=== PATIENT | female | born 1990 | race Caucasian/White ===

== ENCOUNTER 2023-01-09 08:00 | Outpatient (RCR) | payer OTHER, SELFPAY ==
--- NOTE | 2023-01-09 11:05 | BH.SGPN.GN ---
Behaviors/Verbalizations/Mental Status: []Pt alert and oriented, casually dressed and groomed. Eye contact good. Motor activity appropriate. Speech within normal limits. Affect congruent, mood anxious. Thoughts linear, logical, no signs of hallucinations or delusions. Client Response/Progress/Benefit: [] Pt was an active participant in group discussions and activity. Attentive during psychoeducation. Along with peers was able to reflect on what conflict resolution skills can be useful outside of IOP. Pt chose to continue to work on the conflict resolution skills of asking themselves what they feel before starting and being more descriptive for the rest of the week. Benefited from practicing and learning conflict resolution skills. Will continue in IOP to prevent decompensation, improve daily functioning, and increase distress tolerance skills. ? Narrative Note: []
--- NOTE | 2023-01-09 12:25 | BH.MDN ---
Multi-Disciplinary Note Note 45-min Individual: Time Started:: 09:20 Date: 01/09/23 Purpose of session/treatment goals addressed:: Purpose of session was to build rapport, gather background information, and identify goals for IOP. Eye Contact:: Fair Motor Activity:: Restless Appearance:: Casual Speech:: Other (slow to speak) Mood:: Anxious Affect:: Constricted Thoughts:: Logical, Other (slow to process/delayed) and No evidence of hallucinations/delusions noted Staff Interventions:: thought challenging, psychoeducation on: (cognitive triangle, breathing techniques, wellness wheel), CBT techniques, rapport building, strengths perspective, treatment planning and taught coping skills Client Response:: Pt stated daily life has been challenging for the past several months due to anxiety. Pt stated difficulty managing stress has contributed to why they are on a leave of absence from work. Pt reported they become quickly overwhelmed and shuts down. Pt reported uncontrollable worry, physical anxiety symptoms, restlessness, muscle tension and erratic sleep is impacting ability to function at work and home. Pt reported areas they struggle in include managing work-life balance, being more concerned with other people's needs over own needs, and difficulty completing personal hygiene and eating consistently. Client reported in past counseling they have worked on developing organizational strategies, however stated they struggle with consistently using the strategies. Client stated one strategy that used to work was categorizing tasks into important/urgent vs unimportant/not urgent. Client identified learning about breathing techniques has been useful, however has been struggling with consistent use of this skill. Pt reported they would like to learn additional skills/strategies to help mange stress better. Pt connected with psychoeducation about cognitive triangle. client could connect how thoughts/behaviors/emotions are interconnected and how own thoughts can keep them stuck in anxious loop. Pt reported would also like to work on managing guilt thoughts, which they shared stems from childhood experiences. Pt stated feelings of guilt contribute to negative thoughts about self. Risks/Concerns:: Denies suicidal ideation, plan or intention to date. feels able to keep self safe. identifies protective factors. Progress Toward Goals/Plan:: No progress observed, first day in IOP. Pt is currently on a leave of absence from work due to mental health symptoms interfering with ability to complete job responsibilities. Pt's anxious symptoms have been impacting ability to concentrate and complete tasks at work. Pt states they feel like they can't complete life tasks like chores, cooking, and personal hygiene due to mental health. Pt is to continue IOP to improve daily functioning, improve healthy coping, and prevent decompensation. Time Stopped:: 10:00
--- NOTE | 2023-01-10 09:00 | BH.SGPN.GN ---
Behaviors/Verbalizations/Mental Status: [Patient was alert and oriented, casually dressed and groomed. Eye contact was good, motor activity normal, speech within normal limits. Affect congruent, mood aggravated. Thoughts linear, logical, no signs of hallucinations or delusions. Reviewed Patients symptom tracker, the patient reports having low/moderate in depressed mood, moderate in agitation/irritability/anger, and moderate/severe in anxiety/panic attacks. Patient denied any symptoms of self-harm urges/behaviors, thoughts of suicide, and risk of suicide.] Client Response/Progress/Benefit: [Patient was engaged and open to the discussion. Patient reported their mood to be ?aggravated? at themselves. The patient did well when challenged to recognize the importance of self-compassion in managing this emotion. Patients? stressor was that they accidentally turned off their phone alarm instead of snoozing it this morning which made them wake up 40 minutes late. This caused the patient to forget their breakfast, their comfort items, and a form they needed to bring. Patient shared their first win as being able to advocate for themselves yesterday during group. The patient stated they are overly sensitive to sounds and discovered the lights in the lobby were making a noise that was uncomfortable to them. The patient expressed this and it was handled. The patient was not able to identify a second win. Patient was quiet but used active listening skills when others presented and benefited from the challenge and discussion. Patient will continue with IOP treatment to promote healthy coping skills, improve negative thinking, and continue to improve functioning.] Narrative Note: []
--- NOTE | 2023-01-10 10:40 | BH.NA_ITS ---
Physical Data Vital Signs Pulse Rate: 90 Blood Pressure: 109/60 Height/Weight Height: 1.63 m Weight:: 54.431 kg Weight in Pounds: 120.0 lbs Current Medication Compliance Medication Compliance Do you take your medication as prescribed?: Yes Nutritional History Appetite Nutritional Instructions: Describe your appetite:: Fair Additional nutritional information:: Client denies change in appetite. Client does state she has some body image issues. Functional Assessment Sleep Pattern Describe any problems with sleeping: Client states when she does not take Trazodone, she only sleeps 3-4 hours. Client states with her Trazodone she does sleep 9 hours per night. Sensory/Communication Assess Communication Problems Do you have difficulty understanding what people are saying?: No Learning Assessment Education What is your level of education?: Doctorate Degree (neuroscience) Medical Problems/History Respiratory Conditions Respiratory: Asthma (uses inhaler with exercise) Neurological Conditions Neurological: Other (See comments) (Client states she believes she has had 2 concussions- 1 in 2012 and 1 in July of this year. Client states she never had scans done after, but states she did have cognitive function altered for about a month with the first, and a few days with the concussion this year) Gastrointestinal Conditions Gastrointestinal: Other (See comments) (IBS) Pain Assessment Do you have acute or chronic pain?: Yes (client states some joint pain from sports injuries over the years) Additional History Additional comments:: ADHD diagnosis in April 2022 Surgical History Surgical History Have you had any surgeries? If so, list type and date:: Yes (wisdom teeth, right knee, cyst removal) Substance Abuse Substance Abuse Please describe substance abuse in the last 30 days:: Client states she drinks alcohol about 5 times per week, and states it can be up to 4-5 drinks in a 3 hour time. Client states she does have period of intentional sobriety, but states this has been her normal for the past few years. Client denies tobacco use. Client states she uses 0.25-0.5mg of THC edibles every 3 days to help with anxiety. Client states she uses LSD about 2-3 times per year. Client states she does drink coffee, and occasionally has energy drinks, but never drinks caffeine past 2pm. Mental Status Summary Mental Status Significant Findings/Observations on Appearance and Mood:: Client is alert and oriented x 4. Client is casually groomed with good hygiene. Client is c ooperative with assessment. Client makes poor eye contact. Client's voice has normal rate and volume. Client appears anxious during interview, and has many pauses while thinking of a response. Client has appropriate affect. Client states she is a poor historian of her own timeline and pauses to think often with responses. Client denies delusions/hallucinations. Client denies SI. Suicide Assessment Suicidal Ideation Are you currently or have you been suicidal in the past?: Yes (past- has not had SI since 2013) Suicidal Intentional Rating Scale (SIRS): Suicidal thoughts (past) Physician Notification Past Psychiatric History MH Treatment Hx Past Psychiatric Medications:: Client states she has been on one SNRI and two SSRI's in the past along with current medications Age of first mental health symptoms: Client states she has had anxiety since she was a kid, but states she has only been on medication for anxiety since she was 23. Client states she was diagnosed with ADHD this year and started on Adderall. Describe (age, circumstance, etc) any past hospitalizations: None. Current providers for mental health treatment (counselor, psychiatrist, field case manager, etc.): Renato Ho is her counselor at [facility], and Corona Graves DNP is psychiatry provider at [facility] Risk Assessment Age Age: Less than 60 Mental Status Mental Status: Willing & able to ask for assistance when needed Physical Status Physical Status: No problems Impairments Impairments: None Elimination Elimination: Continent AND independent Gait or Balance Gait or Balance: Walks independently Hx of Falls History of falls in the past 6 months: No known history Medications/Substances Psychotropics:: Antidepressants and Stimulants Medications/substances used within the past 24 hours or ordered to administer: 3 or more of the medications/substances listed above Total Score Total Points:: 2 RN Summary of Impressions Impressions Recommendations Impressions: Psychiatric Issues: 1. Generalized anxiety disorder 2. PTSD 3. Major depressive disorder, recurrent, moderate 4. ADHD (diagnosed 1 year ago) 5. Mild autism spectrum disorder (diagnosed by patient's brother who is a psychiatric mental health nurse) Level of Care How do the client's current symptoms and functional deficits support need for this level of care?: Client presents to [facility] with anxiety that has worsened since July/August of this year. Client states she had a concussion in July of this year, and states her mental health symptoms worsened after that. 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 Client states she had been better with her ability to do chores, cooking, etc after starting Adderall after he ADHD diagnosis, but client states she is back to having difficulty doing daily tasks. Client states she has had less panic attacks/severe anxiety periods since taking medical leave from work, but still reports high levels of anxiety. Client denies SI. IOP will promote gains and prevent further decompensation while providing social support and skills training.
--- NOTE | 2023-01-10 11:05 | BH.SGPN.GN ---
Behaviors/Verbalizations/Mental Status: []Pt alert and oriented, casually dressed and groomed. Eye contact good. Motor activity appropriate. Speech within normal limits. Affect constricted, mood anxious. Thoughts linear, logical, no signs of hallucinations or delusions. Client Response/Progress/Benefit: [] Pt was an active participant in group discussions and experiential activity. Attentive during psychoeducation. Pt participated during interactive discussion on strategies to overcome several obstacles to mental wellness including perfectionism, using unhealthy coping skills, and inflexible thinking patterns. Pt choose the barrier of unhealthy coping skills? to work on this week and identified strategies to incorporate including asking self what does saying yes say no to? Benefited from increased awareness of obstacles to mental wellness and strategies to help overcome those obstacles. Will continue in IOP tx to prevent decompensation, gain healthy coping skills, and improve daily functioning. ? Narrative Note: []
[2023-01-10 12:01] VITALS: BP 109/60; PULSE 90
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
--- NOTE | 2023-01-10 12:24 | BH.DR.ITP ---
Initial Treatment Plan Patient Information Visit Information: ADMISSION DATE: EXPECTED LOS: 4-6 weeks Problems/Symptoms Problem #1:: Anxiety Symptom:: Worry, rumination, panic attack, nightmares, reexperiencing, flashbacks, avoidance Problem #2:: Depression Symptom:: Sadness, guilt, decreased concentration, low energy, mild anhedonia, hopelessness
--- NOTE | 2023-01-10 14:41 | BH.MDN_ITS ---
Multi-Disciplinary Note Note 60-min Individual: Time Started:: 12:10 Date: 01/10/23 Purpose of session/treatment goals addressed:: Purpose of session was to address goals 1 and 2 from [facility]. Eye Contact:: Fair Motor Activity:: Restless Appearance:: Casual (Wearing the same sweatshirt as yesterday) Speech:: Tangential and Other (Slowed) Mood:: Anxious Affect:: Constricted Thoughts:: Logical, Other (Slow to process at times) and No evidence of hallucinations/delusions noted Staff Interventions:: psychoeducation on: (Appropriate versus inappropriate guilt. Psychoeducation on anxiety), CBT techniques, mindfulness skills, rapport building, strengths perspective, goal setting and taught coping skills Client Response:: Client shared their morning started off a bit rushed due to their phone alarm accidentally being shut off. Client stated time pressure can be a trigger to increase stress and anxiety. Client reported initially was very tense when he woke up this morning realizing that ready to be late to IOP. Client stated they use belly breathing and challenging their thoughts in the moment which seemed to help manage stress level. Client shared being late to appointments and hang out with friends has been a problem for them in the past. Client reported they have implemented some strategies like laying out what they need the night before and given themselves a 15-minute leeway to give extra time to get summer. Client stated most of the strategies have been helpful and this is not a significant problem. Client reported they really do struggle with recognizing how much time things will take so they do not get himself enough time to get ready. In discussion of guilt client connected to information about appropriate versus inappropriate guilt. Client able to walk through an example of what appropriate get looks like and shared an example of what inappropriate guilt looks like. Client shared about situation with secondary partner in which they are feeling a little stressed about their secondary partner being unemp loyed and depressed all the time. Client reported that her secondary partner has been unemployed for over 8 months and is severely depressed. Client stated they are starting to notice that their partners mood is impacting client's own mood. Therapist and client walked through different problem-solving options of what they could do to make sure the partners mood is not impacting client. Client stated they would not be able to follow through with option 1 of limiting contact with partner because this results in feeling guilty. Client struggled with walking through whether this was appropriate or inappropriate guilt. Client recognizes with assistance from therapist that is not appropriate to do it because they are not do anything wrong to set boundaries but emotionally it feels well. Client communicated that this stressor is not something they really want to focus on because it has not a primary issue. Client reported they rather focus on anxiety and stress management. Client receptive to completing homework of reading and completing anxiety symptoms handouts in which they are to identify physical symptoms of anxiety, anxious thought patterns, and safety behaviors. Client connected to psychoeducation about safety behaviors. Risks/Concerns:: Denies suicidal ideation, plan, and intention. Future oriented. Progress Toward Goals/Plan:: Progress noted with client reporting ability to manage stressful situations this morning. Client notes continued decrease in anxiety since not being at work currently. Client states still struggles with motivation to complete tasks around the house and can easily get overwhelmed. Client stated sometimes feels like they only have the mental capacity to get home and sit on the couch. Client continues to struggle with anxious thoughts, restlessness, uncontrollable worry, and muscle tension. Client's anxiety continues to impact ability to complete certain task at home. Some slight reporting decreased anxiety since not being at work but will be returning to work soon. Client to continue IOP to increase healthy coping, improve daily functioning, and prevent decompensation. Time Stopped:: 13:15
--- NOTE | 2023-01-11 09:00 | BH.SGPN.GN ---
Behaviors/Verbalizations/Mental Status: [] Eye contact is good. Motor activity is appropriate. Appearance is casual. Speech is Appropriate. Mood is anxious. Affect is congruent. Thoughts are linear and logical. No evidence of psychosis. Reviewed daily check in sheet and no reports of suicidal ideations or intent. Client Response/Progress/Benefit: [] Pt participated at times during the group discussion. Attentive. Daily symptom tracker notes 4/5 for anxiety and 3/5 for irritability. She reports significant stress, negative thoughts, and overwhelming emotions last evening at a social event. Shared that triggers to her distress. Reported being uncomfortable, upset, and overstimulated. Talked at length regarding the events, her struggles, and eventually how she was able to advocate for herself. While the situation was stressful progress noted as she as able to effectively communication which mediated her struggles. Shared that she is also anxious about sharing in the group. Group provided support, encouragment, and feedback which was beneficial. Will continue in IOP to prevent decompensation, increase healthy coping, and improve functioning to return to work. Narrative Note: []
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
--- NOTE | 2023-01-11 11:05 | BH.SGPN.GN ---
Behaviors/Verbalizations/Mental Status: []Pt alert and oriented, neatly dressed and groomed. Eye contact good. Motor activity appropriate. Speech within normal limits. Affect congruent, mood euthymic. Thoughts linear, logical, no signs of hallucinations or delusions. Client Response/Progress/Benefit: [] Pt responded well to session AEB Pt listening attentively to others and providing input during group discussion on the pay offs and costs of the different communication styles. Pt able to connect how current communication style impacts mental health. Pt engaged in activity and did well to assertively communicate ideas. Connected with peers comments about importance of using assertive communication. Pt reported she wants to work on being more aware of their passive body language. Pt seemed to benefit from increasing awareness of healthy strategies to improve communication. Will continue IOP tx to prevent decompensation, increase distress tolerance skills, and combat distortions. Narrative Note: []
--- NOTE | 2023-01-11 14:52 | BH.MDN ---
Multi-Disciplinary Note Note 45-min Individual: Time Started:: 12:14 Date: 01/11/23 Purpose of session/treatment goals addressed:: Purpose session was to address goals 1 and 2 from [facility]. Eye Contact:: Fair Motor Activity:: Restless Appearance:: Casual (Wearing the same sweatshirt as the last 2 days) Speech:: Tangential Mood:: Anxious Affect:: Constricted Thoughts:: Logical, Other (Slow to process) and No evidence of hallucinations/delusions noted Staff Interventions:: CBT techniques, rapport building, strengths perspective, goal setting and taught coping skills Client Response:: Client shared homework from earlier session of the wellness wheel. Client reported areas in which they like to work on progress of the wellness is regular exercise, eating better, work life balance, budgeting, spending time in nature, and finding a creative outlet. Client shared they could take their dog on a hike instead of just on the block to increase experience in nature. Client and therapist reviewed homework from what yesterday's session which client identified physical anxious symptoms, anxious thought patterns, and safety behaviors. Client able to identify how their safety behaviors has held him back from opportunities in life and difficulty with enjoying self. Client stated they tend to struggle with going to places without having somebody they know with them. Client stated their safety behaviors impact ability to be efficient while at work and leads to over analyzing situations. Client stated something that they could work on while they are off work is decreasing reassurance seeking from others. Client reported they will often ask their partners if something they do is weird compared to others. Client stated they ask for reassurance at least once a day every day. Client reported her goal for the weekend is to focus on decreasing reassurance seeking, exercise at least once, and cook a meal. Risks/Concerns:: Denies suicide ideation, plan, and intention. Progress Toward Goals/Plan:: Progress noted with client reporting use of healthy coping skills to manage stress. Client expressed anxiety about returning to work in 2 weeks. Client stated that they will be able to continue IOP well working which makes them feel a little better to have some support. Client continues to report anxious symptoms like restlessness, uncontrollable worry, difficulty concentrating, and feeling on edge. Client reports some improvement with daily functioning but does attribute this to being off work because her stress level is decreased. Client concerned about returning to work and their ability to function at home will decline. Client to continue IOP to improve daily functioning, increase consistent use of healthy stress management strategies, and prevent decompensation. Time Stopped:: 13:05
--- NOTE | 2023-01-12 09:00 | BH.SGPN.GN ---
Behaviors/Verbalizations/Mental Status: [] Eye contact is fair. Motor activity is restless. Appearance is casual. Speech is Appropriate. Mood is anxious. Affect is constricted. Thoughts are linear and logical. No evidence of psychosis. Reviewed daily check in sheet and no reports of suicidal ideations or intent. Client Response/Progress/Benefit: [] Pt participated at times during the group discussion. Attentive. Client stated they had a rough night in which they are struggling with a lot of negative thought patterns and racing thoughts. Client noted a mental positive that has come out of their stressor was being able to sit down and look at the cognitive distortion worksheet which helped them challenge the negative thoughts. Client reported additional mental positive was asking their partner for help which they noted was very helpful in the moment. Progress noted. Benefited from group support, encouragement, and feedback. Will continue in IOP to prevent decompensation, continue working on challenging negative thoughts, improve confidence, and improve daily functioning.
--- NOTE | 2023-01-12 09:00 | BH.SGPN.GN ---
Behaviors/Verbalizations/Mental Status: [Patient was alert and oriented, casually dressed and groomed. Eye contact was poor, motor activity normal, slowed speech. Affect congruent, mood depressed. Thoughts linear, logical, no signs of hallucinations or delusions. Reviewed Patients symptom tracker and rated lower than normal, therapist will check in with patient to ensure safety.] Client Response/Progress/Benefit: [ Patient was engaged and open to the discussion. Patient reports their mood to be ?concerned?. The patient seemed to struggle to speak and find words to say. The first win was that they had a ?horrible? night and was crying but saw their binder from the group. They said they started reading about cognitive distortions which was ?kind of helpful?. Patient stated that it also taught them things they were doing which was hard for them to accept and doesn?t want to believe them although its factual. The second win was that they were able to ask their partner to support them which was helpful. The stressor was the ?horrible? night they had and that they were still coping with the emotions. The patient stated they challenged their emotions but talking themselves into coming to group because ?being here and talking about it should help?. Patient quiet and respectful in group and actively listened to other group members talk about their mental wins and stressors. Patient benefited from the discussion by listening to feedback. Patient will continue with IOP treatment to help develop healthy skills, promote mood stability, and improve distress tolerance.] Narrative Note: []
--- NOTE | 2023-01-12 10:15 | BH.SGPN.GN ---
Behaviors/Verbalizations/Mental Status: [] Eye contact is good. Motor activity is appropriate. Appearance is casual. Speech is Appropriate. Mood is depressed. Affect is congruent. Thoughts are linear and logical. No evidence of psychosis. Client Response/Progress/Benefit: [] Pt did not participate in group discussions. Attentive during psychoeducation. Attentive during group discussion on types of support, benefits of support, and obstacles to utilizing support. Pt reports their primary supports are certain friends, medications, and music. 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 Participated in experiential activity and was able to connect this activity to group topic. Benefited from increased awareness of the benefits and importance of maintaining a balanced support system. Will continue in IOP to prevent decompensation, stabilize mood, and increase healthy coping skills. Narrative Note: []
--- NOTE | 2023-01-12 13:50 | BH.MDN ---
Multi-Disciplinary Note Note 60-min Individual: Time Started:: 11:45 Date: 01/12/23 Purpose of session/treatment goals addressed:: Pt requested to speak with a program therapist today. Tearful during first group this AM. Utilized the session to process and develop strategies for emotional boundary setting this weekend at pt's request. Eye Contact:: Fair Motor Activity:: Appropriate Appearance:: Casual Speech:: Appropriate Mood:: Anxious and Depressed Affect:: Congruent Thoughts:: Linear, Logical and No evidence of hallucinations/delusions noted Staff Interventions:: thought challenging and psychoeducation on: (emotional boundary setting, acceptance) Client Response:: Pt briefly discussed stressors which occurred last evening and into this AM which are related to their BFs mental health. According to pt their BF is not suicidal however has experienced worsening depression in the past several months. Last evening their BF received difficult news and she was concerned that he would decompensate further. Shared that they believe its their responsibility to care for others and resolve or significantly decrease his distress. Logically I know this isn't my responsibility Insight that she is shoulding on herself. Ruminating and worrying which is taking up significant space in her head and impacting her mental health. This AM she was worried and had not received a good morning text from him and began to ruminate which led to being tearful during 1st group. BF texted around 11am. She reports that she does not feel confident in setting boundaries on the conversations with him for fear that it will further impact his mental health. We discussed strategies to set realistic expectations for her role in his mental health and for practicing acceptance. She was able to verbalize affirmations, thought challenges, and other internal skills that she could use before, during, and after meeting with him erica. I don't think he will bring up his struggles however she wants to be prepared. Pointed out that simply being supportive and providing distractions can significantly impact another's well-being. Risks/Concerns:: Denied any suicidal ideations, plan or intent. Progress Toward Goals/Plan:: Tearful throughout the assessment, however responded well to session. Insight that their core beliefs regarding being perfect and having high expectations of herself significantly impact their mental health. Setting high expectations on her role in her BF's mental health made her feel ineffective and as if she was failing or not helping him when in fact being supportive and providing a distraction has been helpful. Will continue in IOP to prevent decompensation, stabilize mood, and improve functioning. Time Stopped:: 12:45
== END 2023-01-13 23:59 ==
LOC: BHIOP 08:00
PROVIDERS: Referring Provider Psychiatry & Neurology Psychiatry; Visit Provider Psychiatry & Neurology Psychiatry
DX: F33.1 Major depressive disorder, recurrent, moderate (principal); F41.1 Generalized anxiety disorder; F43.10 Post-traumatic stress disorder, unspecified; F90.9 Attention-deficit hyperactivity disorder, unspecified type; F84.0 Autistic disorder
CPT/HCPCS: S9480; 90834; 90837; 90853

== ENCOUNTER 2023-01-15 09:20 | Outpatient (RCR) | payer OTHER, SELFPAY ==
[2023-01-14 00:49] VITALS: BP 109/60; PULSE 90
--- NOTE | 2023-01-15 10:52 | BH.MTP ---
Master Treatment Plan Patient Information Program Physician:: Dr. Christianson Primary Therapist:: Jacey Stewart, [facility] Psychiatric Diagnoses Psychiatric Diagnoses:: 1. Generalized anxiety disorder F41.1 2. PTSD 3. Major depressive disorder, recurrent, moderate 4. ADHD (diagnosed 1 year ago) 5. Mild autism spectrum disorder (diagnosed by patient's brother who is a psychiatric social worker supervisor) Diagnosis Code(s):: F41.1 Estimated LOS Estimated LOS (in weeks):: 6 Problem/Goal #1 Problem/Goal #1 Stated Goal:: Stabilize anxiety level while increasing ability to function and decreasing ruminative thoughts on a daily basis through Intensive Outpatient Program. Description of Barriers: Potential barriers include: anxious thoughts, negative self-talk, rigidity, low motivation, and anhedonia. Functional Impact: The patient is a 32-year-old biological female who identifies as a nonbinary person who was referred to the [facility] behavioral health IOP for worsening anxiety and sadness. . 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 Their mood has also been somewhat depressed and at one point they was having trouble with personal hygiene, doing basic tasks and errands and chores. They have been on a leave of absence from work for the past 2 weeks and their anxiety has improved since then. Patient endorses sadness, worthlessness, hopelessness, guilt and mild anhedonia. Goal Relevant Strengths/Supports: Client is intelligent, expresses motivation to get better, and reports having support from fianc?. Objectives Objective #1: Stated Objective: Client will learn and implement 2-3 calming skills to reduce overall anxiety and manage anxiety symptoms. Interventions: Therapist and group sessions will help client identify physiological warning signs of anxiety, increase awareness of thoughts that increase anxiety, and identify behaviors that reinforce anxious symptoms. Group and individual counseling will teach client calming skills to help manage anxious symptoms. Discharge Criteria: Client will have achieved this goal when can verbalize at least 2 calming skills and reports skills successfully help reduce anxious symptoms. Target Date: 02/20/23 Review Date: 02/06/23 Objective #2: Stated Objective: Client will identify 2-3 anxiety triggers and 2 coping skills to use when feeling anxious. Interventions: Therapist will assist client in exploring what triggers anxiety and teach client coping strategies to effectively manage anxiety symptoms. Discharge Criteria: Client will have met this goal when can identify at least 2 triggers to anxiety and verbalize two healthy ways to cope with feelings of anxiety. Target Date: 02/20/23 Review Date: 02/06/23 Problem/Goal #2 Problem/Goal #2 Stated Goal:: Client will reduce depression, feelings of hopelessness, and worthlessness due to Major Depressive Disorder through Intensive Outpatient Program. Description of Barriers: Potential barriers include: anxious thoughts, negative self-talk, rigidity, low motivation, and anhedonia. Functional Impact: The patient is a 32-year-old biological female who identifies as a nonbinary person who was referred to the [facility] behavioral health IOP for worsening anxiety and sadness. . 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 Their mood has also been somewhat depressed and at one point they was having trouble with personal hygiene, doing basic tasks and errands and chores. They have been on a leave of absence from work for the past 2 weeks and their anxiety has improved since then. Patient endorses sadness, worthlessness, hopelessness, guilt and mild anhedonia. Goal Relevant Strengths/Supports: Client is intelligent, expresses motivation to get better, and reports having support from fianc?. Objectives Objective #1: Stated Objective: Client will learn and utilize 2-3 healthy coping strategies to manage depressive symptoms. Interventions: Therapist will utilize CBT techniques to assist client with understanding the connection between thoughts, feelings and behaviors. Education will be provided on behavioral activation. Therapist will assist client in learning internal coping strategies to manage depressive symptoms, along with helping client identify triggers. Discharge Criteria: Client will have achieved this goal when can verbalize and has practiced at least 2 healthy coping strategies that successfully manage depressive symptoms. Target Date: 02/20/23 Review Date: 02/06/23 Objective #2: Stated Objective: Client will identify and replace 2-3 negative thinking patterns that reinforce feelings of hopelessness and worthlessness. Interventions: Through groups and individual therapy, pt will be provided with education on cognitive distortions, mistaken beliefs, and identifying and combating negative self-talk. Therapist will help pt explore connection between thoughts, feelings, and actions. Discharge Criteria: Pt will be able to identify 2-3 negative thinking patterns and be able to effectively stop, challenge, or cope with those negative thoughts. Target Date: 02/20/23 Review Date: 02/06/23
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
--- NOTE | 2023-01-16 09:05 | BH.SGPN.GN ---
Behaviors/Verbalizations/Mental Status: [] Eye contact is good. Motor activity is appropriate. Appearance is casual. Speech is Appropriate. Mood is anxious. Affect is congruent. Thoughts are linear and logical. No evidence of psychosis. Reviewed daily check in sheet and no reports of suicidal ideations or intent. Client Response/Progress/Benefit: [] Pt participated at times during the group discussion. Attentive. Daily symptom tracker notes 3/5 for anxiety and depression and a 4/5 for irritability. Mental health win was that she had a difficult conversation over the weekend which was emotionally overwhelming and challenging however led to increased awareness and insight. Utilized effective communication strategy learned in IOP and quickly learned that the her concerns, wants, and emotions were not being considered which resulted in understanding the need for a boundary. Progress noted AEB effective communication and boundary setting skills. Benefited from group support, encouragement, and feedback. Will continue in IOP level of care to prevent decompensation, increase healthy coping, and improve functioning to return to work. Narrative Note: []
--- NOTE | 2023-01-16 10:15 | BH.SGPN.GN ---
Behaviors/Verbalizations/Mental Status: [] Eye contact is fair. Motor activity is appropriate. Appearance is casual. Speech is Appropriate. Mood is anxious. Affect is flat. Thoughts are linear and logical. No evidence of psychosis or hallucinations. Client Response/Progress/Benefit: [] Pt was a mostly passive participant in group discussion and activity. Attentive during psychoeducation. Along with peers was able to identify barriers to taking action on her mental health which included: fear of failure, the unknown, change, one's environment, past negative experiences, being passive, and fear of vulnerability. Identified several symptoms and stressors that client feels are impacting progress. Benefited from increased self-awareness of obstacles. Will continue in IOP to consistently apply healthy coping skills, improve outlook on life, and prevent decompensation.
--- NOTE | 2023-01-16 14:25 | BH.MDN ---
Multi-Disciplinary Note Note 60-min Individual: Time Started:: 11:40 Date: 01/16/23 Purpose of session/treatment goals addressed:: Purpose of session was to address goals 1 and 2 from MTP. Eye Contact:: Fair Motor Activity:: Restless Appearance:: Casual Speech:: Tangential and Other (slowed) Mood:: Anxious and Dysthymic Affect:: Constricted Thoughts:: Logical and No evidence of hallucinations/delusions noted Staff Interventions:: thought challenging, psychoeducation on: (boundary types and styles; DBT Ruvalcaba Mind), CBT techniques, strengths perspective and taught coping skills Client Response:: Client's states last week they were struggling because they were worried about their boyfriend from their secondary relationship. Client reports they are starting to notice the negative impact their boyfriend is having on their own mental health. Client states getting more worried about their boyfriend now that he is allowing one of his exes back in his life, which client reports from their perspective is a toxic person. Client reports they used the JOI worksheet to write out what they wanted to say to their boyfriend. Client states they only got to the second step of expressing feelings and couldn't complete the steps because their boyfriend kept interrupting. Client reports desire to learn about boundaries because recognizes it is time to set a firm boundary with their boyfriend due to is starting to impact their own mental health. Responded well to psychoeducation about utilizing ruvalcaba mind when making decisions. Client connect the importance of taking into account both rational and emotional mind versus making decision in just rational or just emotional mind. Client feels like they are making a ruvalcaba mind decision. Client receptive to completing homework in which they are to identify if they are porous, rigid, or healthy for different kinds of boundaries. Risks/Concerns:: Denies suicidal ideation, plan, and intention. Future oriented. Progress Toward Goals/Plan:: Progress noted with client showing increased self-awareness on the impact of their secondary relationship is having on their mental health. As of last week client had initially believed secondary relationship was having no impact on her mental health but is starting to realize if they do not do something in regards to boundaries and will continue to deteriorate their own depression and anxiety. Client continues to report anxious and depressed symptoms which can be connected to recent psychosocial stressor with her relationship and having to return back to work soon. Client to continue IOP to increase healthy coping, challenge distorted thoughts, and prevent decompensation. Time Stopped:: 12:40
--- NOTE | 2023-01-17 09:00 | BH.SGPN.GN ---
Behaviors/Verbalizations/Mental Status: [] Pt alert and oriented, casually dressed and groomed. Eye contact good. Motor activity appropriate. Speech within normal limits. Affect constricted, mood dysthymic Thoughts linear, logical, no signs of hallucinations or delusions. Reviewed pt?s symptom tracker, no risk for suicidal ideation, plan, or intent 01/17/23 Client Response/Progress/Benefit: []Pt responded well to session, attentive and receptive to feedback. Pt reports feeling conflicted this morning as pt broke up with their boyfriend last night. Pt shared this is both their stressor and mental health win. Pt stated they feel sad about ending a relationship and hurting someone's feelings, but pt realized this was not a healthy relationship. Pt also reached out to healthy support last night which pt found helpful so they did not ruminate as much. Pt appeared to benefit from getting encouragement from peers. Pt will continue IOP tx to promote mood stability, combat distortions, and increase self-confidence. Narrative Note: []
--- NOTE | 2023-01-17 10:10 | BH.SGPN.GN ---
Behaviors/Verbalizations/Mental Status: [Patient was alert and oriented, casually dressed and groomed. Eye contact good, motor activity normal, speech within normal limits. Affect congruent, mood content. Thoughts linear, logical, no signs of hallucinations or delusions] Client Response/Progress/Benefit: [Patient was open and participated in group discussions. Attentive during psychoeducation on stages of change. Participated during the activity. Interactive group discussion on why change is difficult in which group verbalized that change involves the unknown, is scary, leads to uncertainly, makes one feel vulnerable, leads to fear of failure, and triggers the pressure of success. Patient identified that making change makes your situation better in the long run. Patient benefited from increased awareness of stages of changes and how emotions impact change. Patient will continue with IOP treatment to promote mood stability, improve distress tolerance, and continue to improve functioning.] Narrative Note: []
--- NOTE | 2023-01-18 10:10 | BH.SGPN.GN ---
Behaviors/Verbalizations/Mental Status: [] Eye contact is good. Motor activity is appropriate. Appearance is casual. Speech is Appropriate. Mood is anxious dysthymic. Affect is constricted. Thoughts are linear and logical. No evidence of psychosis. Client Response/Progress/Benefit: [] Client was an attentive during interactive group discussions by writing notes and sharing when prompted. Attentive during psychoeducation on the six types of boundaries (physical, emotional, intellectual, sexual, time, and material) AEB note-taking. Along with peers contributed to interactive discussion on defining what a boundary is in mental health. Client along with peers identified challenges to setting boundaries which included; fear of other's response, guilt, fear of losing relationships, and not knowing how to. Client along with peers identified the benefits to setting boundaries. Client shared they struggle with setting boundaries because they fear they will regret it or don't want to hurt the other person's feelings. Client benefited from increased awareness and insight on the importance/benefit to setting healthy boundaries. Will continue in IOP to improve daily functioning, increase healthy coping and boundary setting with supports, and prevent decompensation. Narrative Note: []
--- NOTE | 2023-01-18 11:10 | BH.SGPN.GN ---
Behaviors/Verbalizations/Mental Status: []Pt alert and oriented, casually dressed and groomed. Eye contact fair. Motor activity appropriate. Speech within normal limits. Affect constricted, mood anxious. Thoughts linear, logical, no signs of hallucinations or delusions. Client Response/Progress/Benefit: []Pt responded well to session, engaged and contributing. Pt attentive during psychoeducation on the different boundary styles. Able to connect impact current boundary styles impact on functioning. Pt was given a handout on strategies for healthy boundary setting. Appeared to benefit from increasing insight to boundary setting and the impacts on mental health. Pt struggles with over sharing and getting overly involved in other peoples problems. Pt reported wanting to work asking others about themselves and asking others if they want to be heard, helped, or hugged. Reported they want to focus on asking others if they want feedback before pt offers unsolicited feedback. Will continue IOP tx to prevent decompensation, challenge distortions, and prevent decompensation.
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
--- NOTE | 2023-01-23 10:10 | BH.SGPN.GN ---
Behaviors/Verbalizations/Mental Status: []Pt alert and oriented, casually dressed and groomed. Eye contact good. Motor activity appropriate. Speech within normal limits. Affect congruent, mood calm. Thoughts linear, logical, no signs of hallucinations or delusions. Client Response/Progress/Benefit: []Pt was an active participate AEB providing contributions, listening attentively to others, and taking notes throughout. The group identified the impact of emotions on communication such as causing a person to ?break down and boil over?. Pt shared when they get overwhelmed they stop functioning like ?a normal human.? During group activity, Pt identified feeling ?pressure? to help the group succeed, but pt felt they coped well with this feeling. Pt benefited from session by gaining an increased understanding on the importance of managing emotions to improve daily functioning. Pt will continue IOP tx to promote mood stability, increase emotional regulation skills, and improve daily functioning. Narrative Note: []
--- NOTE | 2023-01-23 11:10 | BH.SGPN.GN ---
Behaviors/Verbalizations/Mental Status: []Pt alert and oriented, casually dressed and groomed. Eye contact fair. Motor activity restless. Speech within normal limits. Affect constricted, mood euthymic. Thoughts linear, logical, no signs of hallucinations or delusions. Client Response/Progress/Benefit: [] Pt engaged in session AEB Pt listening attentively to peers and providing input. Attentive during psychoeducation on 4 zones of regulation. Pt able to identify feelings and behaviors for each zone. Pt identified coping skills one can use to support self in each zone. Identified one skill from each zone she can practice which included: accountability sulaiman, schedule time for relaxation, and asking for help. Benefited from increased education on zones of regulation or stages of alertness for emotions and healthy coping skills to use for each zone. Will continue IOP tx to challenge distortions, increase healthy coping, and prevent decompensation.
--- NOTE | 2023-01-24 09:00 | BH.SGPN.GN ---
Behaviors/Verbalizations/Mental Status: [Patient was alert and oriented, casually dressed and groomed. Eye contact was good, motor activity normal, speech within normal limits. Affect congruent, mood calm. Thoughts linear, logical, no signs of hallucinations or delusions. Reviewed Patients symptom tracker and the patient reports moderate/severe in depressed mood, moderate in anxiety/panic attacks, and agitation/irritability/anger. The patient reports no symptoms of self-harm urges, and thoughts/risk of suicide.??] Client Response/Progress/Benefit: [Patient was engaged and open to the discussion. Patients mood is ?concerned?. The first win was that they set a boundary at work and told them that they would no longer be working more than 40 hours a week. This made the patient uncomfortable because they said, ?only the slackers work the 40-hour minimum?. But has accepted they needed to do this for their mental health. The second win was that the patient told the geode that they needed more guidance on their job. The patient has not asked until now because they know their boss is busy and didn?t want to burden them. Patients stressor was that her partner had told them he cut out a specific person in his life but found out he was lying to them last night. The patient feels that they should talk to him about it but is unsure how to go about it.?Patient was interactive and respectful with other group members about their mental wins and stressors. Patient benefited from the discussion by listening to feedback and giving input on their peer?s stressors and mental health wins. Patient will continue with IOP treatment to help develop healthy skills, promote mood stability, and improve distress tolerance.] Narrative Note: []
--- NOTE | 2023-01-24 10:10 | BH.SGPN.GN ---
Behaviors/Verbalizations/Mental Status: [] Eye contact is good. Motor activity is appropriate. Appearance is casual. Speech is Appropriate. Mood is anxious. Affect is congruent. Thoughts are linear and logical. No evidence of psychosis. Client Response/Progress/Benefit: [] Pt was an active participant during group discussions and group activities. Attentive during psychoeducation. Engaged during activity in which they identified which type of foods (i.e. carbs, sugar, salt, fast food, caffeine, etc) they seek out when sad, tired, angry, rushed, anxious, etc. Pt was able to identify the impact that certain foods have on their mental health through group example which was beneficial. Increased awareness of the connection between nutrition and mental health. Will continue in IOP to prevent decompensation, increase healthy coping, and stabilize mood. Narrative Note: []
--- NOTE | 2023-01-24 12:29 | PCM.BH.PN ---
Progress Note Progress Note: History of Present Illness/Interim History: The patient is a 32-year-old biological female who identifies as a nonbinary person with a history of anxiety and depression and ADHD who is seen in follow-up at the [facility] behavioral health [facility]. I last saw the patient 2 weeks ago and at that time the Prozac dose was increased to 40 mg p.o. daily. The patient tolerated this increase well and reports no side effects from this. In addition the patient increased back up to her prescribed stimulant dose in the past 2 weeks as she felt that she needed more benefit for. The patient states that she feels she is benefiting from the IOP and is learning valuable skills to help with her mental health issues. Her anxiety and depression remains but she feels that this is also situational due to ongoing stressors. The patient recently broke up with a secondary partner 1 week ago and is still grieving this loss even though she feels it was the right thing to do. She returned to work only 2 days a week for limited hours right now but eventually will gradually increase back up to her prior work schedule. She has had 2 panic attacks in the past 2 weeks 1 of which coincided near after the time of the break-up. Her concentration has improved since increasing her stimulant dose. She denies passive thoughts of , suicidal ideation, plan for suicide, homicidal ideation, hallucinations or delusions. Current Psychiatric Medications: [] Adderall immediate release 15 mg p.o. twice daily; Wellbutrin XL 450 mg p.o. every morning; Prozac 40 mg p.o. daily (dose increased 2 weeks ago); BuSpar 7.5 mg p.o. twice daily.; Xanax 0.25 mg p.o. as needed for panic attack; trazodone 50 mg 1 p.o. nightly. Mental Status Examination: [] The patient is a 32-year-old female who is tall and thin and identifies as a nonbinary person. She appears normal for stated age and is casually dressed and groomed with good hygiene. She has short hair and several ear piercings. She is ambulatory with a normal gait and has no psychomotor agitation or retardation. She was cooperative during the interview. Mood was anxious and affect was mildly constricted. Eye contact was good overall but she still looks down often when she is discussing symptoms. Speech is normal rate and rhythm and fluent with no pressure. Thought process is goal-directed and organized. Thought content: The patient feels they are benefiting from the IOP. There is no evidence of passive thoughts of , plan for suicide, thoughts of self-harm, suicidal ideation, homicidal ideation, hallucinations or delusions. Reality testing is intact. Intelligence is above average. Judgment is intact. Insight Limited but improving. Impulsivity is low. Diagnoses: [] 1. Generalized anxiety disorder 2. PTSD 3. Major depressive disorder, recurrent, moderate 4. ADHD (diagnosed 1 year ago) 5. Mild autism spectrum disorder Plan: [] The patient will continue the IOP as the structure, support, education and group therapy will hopefully prevent worsening of the patient's symptoms. She felt safe during the interview and if it anytime they do not feel safe they will let us know or go to the emergency room. No medication changes were made today. Refill was given for trazodone and for the 150 mg capsules of Wellbutrin XL as patient requested this. She will continue to follow-up with her outpatient providers and I will see the patient in follow-up in several weeks while in the IOP.
--- NOTE | 2023-01-24 13:47 | BH.MDN ---
Multi-Disciplinary Note Note 60-min Individual: Time Started:: 11:10 Date: 01/24/23 Purpose of session/treatment goals addressed:: Purpose of session was to address goals 1 and 2 from MTP. Eye Contact:: Fair Motor Activity:: Restless Appearance:: Casual Speech:: Appropriate Mood:: Anxious and Dysthymic Affect:: Constricted Thoughts:: Linear, Logical and No evidence of hallucinations/delusions noted Staff Interventions:: thought challenging, CBT techniques, mindfulness skills, strengths perspective, goal setting and taught coping skills Client Response:: Client stated hide meeting with their boss and overall believes it went well. Client stated they were more direct with their boss compared to how they usually are which they believed was helpful. Client stated they are not sure how the boss feels about the boundary of only working 40 hours a week but is proud of himself for setting the boundary. 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 Client stated thus far they have worked a few hours and it has been going okay. Client stated they did have to set additional boundaries with their ex that they really cannot talk daily because it is making client miss their ex due to having a strong emotional connection. Client identified current stressor as her boyfriend wanting to get back together with his ex despite recognizing it does not seem to be a healthy choice since his ex does not really like polyamory. Client stated they are feeling stressed because they want their partner to be happier and recognizes their partner has been more down which then impacts client's mood. Client stated they are going to try to request a sooner couples therapy session so they can work this out before they go on vacation together. Client reported they are looking forward to vacation at the end of this month in which his they would get time to spend more quality time together with their primary partner. Client reported they have noticed some progress with improved daily functioning, increased skills to help manage anxious symptoms, and decreased depressed symptoms compared to when they first started IOP. Client stated while there continue the program and liked to start looking at self worth and challenging their fear of disappointing others. Risks/Concerns:: Denies suicidal ideation, plan, and intention. Future oriented. Progress Toward Goals/Plan:: Client progress noted with them reporting ability to be more assertive at work which they note has reduced some anxiety. Client also shown improved ability to set boundaries within the relationships. Client continues to have struggles with discord and relationships impacting their own mood. Client showing progress with trying to take action instead of letting the stressors continue to negatively impact them. Client able to note treatment progress with improved daily functioning, improve use of healthy coping skills to manage anxiety, and decreased depression. Client's ability to concentrate is still struggle and motivation can be a challenge. Client to continue IOP to increase healthy coping, challenge distortions, and prevent decompensation. Time Stopped:: 12:00
--- NOTE | 2023-01-24 14:06 | BH.MDN_ITS ---
Multi-Disciplinary Note Note 45-min Individual: Time Started:: 09:01 Date: 01/18/23 Purpose of session/treatment goals addressed:: Purpose of session was to address goals 1 and 2 from MTP. Eye Contact:: Fair Motor Activity:: Restless Appearance:: Casual Speech:: Appropriate Mood:: Anxious and Other (Sad) Affect:: Congruent Thoughts:: Linear, Logical and No evidence of hallucinations/delusions noted Staff Interventions:: thought challenging, CBT techniques, mindfulness skills, rapport building, strengths perspective and goal setting Client Response:: Client shared completed homework from last session of identifying what kind of boundaries they set with others. Client stated they struggle the most in regards to expressing their feelings of others. Client stated they had a meeting with primary relationship, Asif, and secondary relati onship, Jake, to discuss Jake's current situation with. Client stated during this discussion she found out that he has been sleeping with the ex and he did not tell client about this. Client stated they felt dismissed emotionally by Jake because he made it seem like it was not a big deal that he was not honest about his sexual partners. Client reported he clearly broke their sexual and emotional boundaries but not being honest which is an important component of polyamory. Client stated she decided to end the relationship because trust had been broken. Client stated they have waves of guilt for breaking up with Jake because they know he also struggles with mental health issues. However with assistance from therapist client able to challenge distorted thought patterns and recognizes that they are not responsible for taking care of Jake. Client reported mood has been down since breaking up with Jake and has allowed himself to be sad which is something that they would not have allowed self to do in the past. Client stated they also reached out to support from their best friend and processed everything that is happening with primary relationship Asif. Client stated overall currently doing okay with her decision because recognizes it is for the best. Client stated they do start back to work on a part-time basis next week. Client reported they really haven't thought about returning back to work because they've been distracted with relationship stressors. Client stated feeling anxious about upcoming meeting with boss about how transition back to work will look like for them. Client worked with therapist to identify important areas would like to discuss and boundaries would like to set. Risks/Concerns:: Client denies suicidal ideation, plan, or intention to date. Progress Toward Goals/Plan:: Progress noted with client setting firm boundaries and making a decision that is best for their mental health at this time. Client's relationships have been impacting their mental health with increasing anxiety and stress. Client is hopeful ending secondary relationship will be helpful in stress reduction. Client expresses spike in anxiety with returning to work on a part-time basis. Client worried won't be able to maintain daily functioning as well as they have in the last couple of weeks. Client to continue IOP to help with transition back to work, continue use of healthy coping, and prevent decompensation.
--- NOTE | 2023-01-25 09:00 | BH.SGPN.GN ---
Behaviors/Verbalizations/Mental Status: [] Eye contact is good. Motor activity is appropriate. Appearance is casual. Speech is Appropriate. Mood is anxious. Affect is congruent. Thoughts are linear and logical. No evidence of psychosis. Reviewed daily check in sheet and no reports of suicidal ideations or intent. Client Response/Progress/Benefit: [] Pt participated at times during the group discussion. Attentive. Daily symptom tracker notes 5 for depression and 2/5 for anxiety. Pt reports elevated anxiety related to having to meet up with toxic person today. Shared that the meeting will be brief as they have to exchange some things. Reports that she has a plan to manage thoughts and emotions prior to and after the meeting. She has been able to set very firm and consistent boundaries with this person recently. Reports that she was able to practice self-discipline last evening which was beneficial. She choose not to eat unhealthy foods b/c she was sad and also choose to engage in work responsibilities she has been avoiding. I made good decisions. Progress noted per pt report. Increased awareness and insight. Benefited from group support, encouragment, and feedback. Will contiunue in IOP to prevent decompensation, increase healthy coping, and to improve functioning to return to work. Narrative Note: []
--- NOTE | 2023-01-25 10:05 | BH.SGPN.GN ---
Behaviors/Verbalizations/Mental Status: [] Eye contact is avoidant. Motor activity is appropriate. Appearance is casual. Speech is Appropriate. Mood is euthymic and anxious. Affect is congruent. Thoughts are linear and logical. No evidence of psychosis. Client Response/Progress/Benefit: [] Client connected with topic of Anxiety and participated throughout, providing input and taking notes. Attentive during psychoeducation on different anxiety disorders and participated throughout interactive discussion defining anxiety and identifying cognitive and physiological symptoms of anxiety.Common physical and cognitive symptoms identified by group included: ?what if thoughts?, ?fear of failure?, negative self-talk, feeling nauseous, shaky, and hot. Client identified alcohol and avoiding self care as their safety behaviors. Benefited from increased awareness and insight on anxiety and its impact. Plan is to continue in IOP to challenge negative thought patterns, increase consistency of healthy coping and thought challenge skills, and prevent decompensation. Narrative Note: []
--- NOTE | 2023-01-25 11:11 | BH.SGPN.GN ---
Behaviors/Verbalizations/Mental Status: [] Eye contact is avoidant. Motor activity is appropriate. Appearance is casual. Speech is Appropriate. Mood is euthymic anxious. Affect is congruent. Thoughts are linear and logical. No evidence of psychosis. Client Response/Progress/Benefit: [] Client was an active participant in group discussion and providing good insight to peers. Attentive during psychoeducation on mindfulness coping skills and their impact on mental health wellness. The group worked together to brainstorm soothing and mind-based mindfulness strategies to improve anxiety management. The group practiced guided meditation and discussed its benefit. Client shared they plan to utilize aromatherapy and the 5 senses technique to manage anxiety. Client seemed to benefit from increased repertoire of anxiety reduction skills. Client will continue IOP tx to prevent decompensation, improve overall functioning, and gain healthy coping skills. Narrative Note: []
--- NOTE | 2023-01-30 10:05 | BH.SGPN.GN ---
Behaviors/Verbalizations/Mental Status: []Pt alert and oriented, casually dressed and groomed. Eye contact good. Motor activity appropriate. Speech within normal limits. Affect congruent, mood anxious and euthymic. Thoughts linear, logical, no signs of hallucinations or delusions. Client Response/Progress/Benefit: [] Pt receptive to session AEB contributing to small group discussion, as well as listening attentively to others, and taking notes. Worked with group to brainstorm the positive and negative aspects of stress on physical and mental health. Group did well to identify the benefits of stress as well as the impact of distress on performance, relationships, and mental health. Pt identified their personal top stressors as: bills, returning to work, health issues, and relationships. Pt reports when their jar is ?overflowing? pt dissociates, has cognitive distortions, and is impulsive. Pt seemed to benefit from increased awareness of current stressors and impact stress has on mental health. Recommended to continue IOP tx to promote mood stability, increase self-confidence, and improve emotional regulation skills. ? Narrative Note: []
--- NOTE | 2023-01-30 11:05 | BH.SGPN.GN ---
Behaviors/Verbalizations/Mental Status: []Pt alert and oriented, casually dressed and groomed. Eye contact good. Motor activity appropriate. Speech within normal limits. Affect congruent, mood anxious and euthymic. Thoughts linear, logical, no signs of hallucinations or delusions. Client Response/Progress/Benefit: [] Pt was an active participant in group discussions and experiential activity. Was able to identify the connection between the experimental activity and utilization of stress management skills. Pt reported good succeeded because of their clear communication. Attentive during psychoeducation on the 4 A's (Avoid, adapt, alter, accept) of coping with stress. Pt shared plans to utilize the skill of adapting by focusing on realistic expectations for home and at work. Benefited from increased awareness of stress management strategies. Will continue in IOP to promote mood stability, increase emotional regulation skills, and improve self-confidence. Narrative Note: []
--- NOTE | 2023-01-31 09:00 | BH.SGPN.GN ---
Behaviors/Verbalizations/Mental Status: [ Patient was alert and oriented, appropriately dressed and groomed. Eye contact was good, motor activity normal, speech within normal limits. Affect congruent, mood content. Thoughts linear, logical, no signs of hallucinations or delusions. Reviewed Patients symptom tracker and the patient reports moderate in anxiety/panic attacks and low/moderate in depressed mood. Patient does not report symptoms for agitation/irritability/anger self-harm urges or thoughts/risk of suicide. ] Client Response/Progress/Benefit: [Patient was engaged and open to the discussion. Patient reported their mood to be ?anxious?. The patients stressor is that they went back to work this week and it went well but made them crash. The patient was frustrated with themselves because they don?t understand why they crashed. The patients first win was that they have discovered a new podcast about ?creating your own life? and it has been empowering. The second win was that they went to a collage reunion over the weekend and typically the patient does not engage in extroverted activities but decided to this time and had a good time. Patient was interactive and respectful with other group members about their mental wins and stressors. Patient benefited from the discussion by listening to feedback and giving input on their peer?s stressors and mental health wins. Patient will continue with IOP treatment to help develop healthy skills, promote mood stability, and improve distress tolerance. ] Narrative Note: []
--- NOTE | 2023-01-31 10:20 | BH.SGPN.GN ---
Behaviors/Verbalizations/Mental Status: []Pt alert and oriented, neatly dressed and groomed. Eye contact good. Motor activity appropriate. Speech within normal limits. Affect constricted, mood euthymic. Thoughts linear, logical, no signs of hallucinations or delusions. Client Response/Progress/Benefit: [] Pt responded well to session AEB contributing to discussion, taking notes, and listening attentively to others. Group discussed the benefits of managed anger and anger as a secondary emotion. Pt shared perspective on personal benefits of anger as motivated for change and communication. Pt completed worksheet on anger triggers and personal warning signs of anger. Pt identified their biggest triggers as inequality and failure. Appeared to benefit from increased knowledge of the anger cycle as well as personal triggers. Will continue IOP tx to further improve daily functioning, reduce negative self-talk, and increase use of healthy coping skills. Narrative Note: []
--- NOTE | 2023-01-31 11:15 | BH.SGPN.GN ---
Behaviors/Verbalizations/Mental Status: []Client alert and oriented, casually dressed and groomed. Eye contact fair. Motor activity appropriate. Speech within normal limits. Affect constricted, mood anxious. Thoughts linear, logical, no signs of hallucinations or delusions. Client Response/Progress/Benefit: []Pt was attentive throughout AEB contributing at times to small group discussion and self-reflection. Group finished processing cues to anger worksheet. Pt completed personal anger cycle. Identified triggering event, negative thoughts, emotional response, physical symptoms, and behavioral response. Pt attentive as group brainstormed healthy coping skills for better managing anger which included: problem solving, walking/exercise, taking a break, grounding tools, reflection, and journaling. Pt worked in small groups to identify healthy coping skills/strategies to manage anger. Pt identified connected with taking a break and challenging thoughts. Pt appeared to benefit from identifying different techniques to manage anger as well as gaining awareness of potential consequences of unmanaged anger. Will continue IOP tx to improve daily functioning, increase ability manage anxious thoughts, and prevent decompensation.
--- NOTE | 2023-02-01 10:20 | BH.SGPN.GN ---
Behaviors/Verbalizations/Mental Status: []Pt alert and oriented, casually dressed and groomed. Eye contact good. Motor activity appropriate. Speech within normal limits, quiet. Affect congruent, mood dysthymic. Thoughts linear, logical, no signs of hallucinations or delusions. Client Response/Progress/Benefit: []Pt receptive of session, actively engaged throughout AEB taking notes, providing some input, and listening to discussion. Appeared to connect with group topic of cognitive distortions and the impact of thought patterns on mental health, coping behaviors, and relationships. Pt reports connecting with distortions of disqualifying the positive and mind-reading. Pt stated she has difficult time with getting compliments as a result. Pt appeared to benefit from gaining insight on distorted thinking patterns and how this impacts overall mental health. Will continue IOP tx to improve mood stability, increase healthy coping and communication, and prevent decompensation. Narrative Note: []
--- NOTE | 2023-02-01 11:15 | BH.SGPN.GN ---
Behaviors/Verbalizations/Mental Status: [] Eye contact is fair. Motor activity is within normal limits. Appearance is casual. Speech is Appropriate. Mood is dysthymic. Affect is constricted. Thoughts are linear and logical. No evidence of psychosis. Client Response/Progress/Benefit: [] Pt was an engaged participant during group discussions and activity. Pt was placed in a smaller group and participated in activity in which small groups worked together to answer questions based on identifying, challenging, and reframing cognitive distortions. Pt was engaged in the smaller group, participated in group interactions to brainstorm answers, and appeared to be comprehending cognitive distortions. Connected with others about impact distortions can have on functioning and decisions. Benefited from gaining further insight and awareness of cognitive distortions as well as practicing ways to reframe and challenge thoughts. Will continue in [facility] to promote use of anxiety management skills, challenge distortions, and improve daily functioning.
--- NOTE | 2023-02-01 14:11 | BH.MDN ---
Multi-Disciplinary Note Note 60-min Individual: Time Started:: 09:00 Date: 02/01/23 Purpose of session/treatment goals addressed:: Purpose session was to address goals 1 and 2 from [facility]. Eye Contact:: Fair Motor Activity:: Restless Appearance:: Casual Speech:: Appropriate Mood:: Dysthymic Affect:: Congruent Thoughts:: Linear, Logical and No evidence of hallucinations/delusions noted Staff Interventions:: CBT techniques, strengths perspective, goal setting, taught coping skills and other (problem solving) Client Response:: Client reported on Sunday and Sunday of this week they had a emotional crash. Client describes this as feeling down, lonely, and heaviness. Client stated had urge to escape reality when feeling this way. Client reported on Sunday they choose to lay in bed and maintain feeling sad. Client noted it did help when their partner was supportive. Client stated on Sunday they used opposite action by completing some chores and watching a movie with their partner. Client reported due to feeling drained after working full day Sunday and going to [facility] and working 1/2-day on Sunday they decided it would be in their best interest to take yesterday off work. Client noted did seem to help them recover from feeling so exhausted. Client expresses some concern with being able to maintain a full-time job and keep up with daily chores. Client and therapist brainstormed various ideas on what strategies they could utilize to help manage the stress of maintaining work and keeping up with daily task at the home. Client stated they have already tried many of the strategies in the past with minimal success. Client reported they don't know if it's possible to work FT and keep up with their home responsibilities due to becoming overwhelmed. Therapist encouraged client to try the strategies out again to see if could help. Client stated they are looking forward to going on vacation next week with their partner for much needed connection. When provided psychoeducation about cognitive distortions client reported they were familiar with distortions and that in the past challenging or reframing did not work for certain thoughts. Client receptive to starting to look at core beliefs because likely playing a role in negative self-worth. Agreeable for homework to read provided handouts about core beliefs and starting to identify own core beliefs. Risks/Concerns:: Denies suicidal ideation plan, and intention. Progress Toward Goals/Plan:: Slight decompensation AEB client reported multiple days in which they had emotional crash. 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 Stated reported decreased mood last couple of days with laying in bed for awhile on Sunday evening. Client did use opposite action on Sunday to try and be productive at home despite feeling low. Client is to continue IOP to increase consistent use of healthy coping, start work on core beliefs, and prevent decompensation. Time Stopped:: 09:55
== END 2023-02-13 23:59 ==
LOC: BHIOP 09:20
PROVIDERS: Referring Provider Psychiatry & Neurology Psychiatry; Visit Provider Psychiatry & Neurology Psychiatry
DX: F41.1 Generalized anxiety disorder (principal); F43.10 Post-traumatic stress disorder, unspecified; F33.1 Major depressive disorder, recurrent, moderate; F90.9 Attention-deficit hyperactivity disorder, unspecified type; F84.0 Autistic disorder
CPT/HCPCS: S9480; 90834; 90837; 90853

== ENCOUNTER 2023-02-14 06:48 | Outpatient (RCR) | payer OTHER, SELFPAY ==
[2023-02-14 00:51] VITALS: BP 109/60; PULSE 90
--- NOTE | 2023-02-14 10:10 | BH.SGPN.GN ---
Behaviors/Verbalizations/Mental Status: [] Eye contact is poor. Motor activity is appropriate. Appearance is casual. Speech is Appropriate. Mood is depressed. Affect is flat. Thoughts are linear and logical. No evidence of psychosis. Client Response/Progress/Benefit: [] Pt participated at times during the group discussions however was mostly quiet and attentive AEB note-taking. Active participant in experiential activity. Attentive during interactive discussion in which group worked together to define resilience (i.e. continuing to bounce back from hardship; willingness to keep trying) and identify benefits of resilience. Attentive during interactive discussion on if resilience is something we are born with or can learn. Provided appropriate thoughts and feedback. Able to relate the experiential activity back to topic of resilience. Worked well in small groups to identify strategies to build resilience. Benefited from increased awareness of the role of resilience in mental health and ways to build resilience. Will continue in IOP to prevent decompensation, increase healthy coping, and to improve functioning. Narrative Note: []
--- NOTE | 2023-02-14 14:17 | BH.MDN_ITS ---
Multi-Disciplinary Note Note 30-min Individual: Time Started:: 09:15 Date: 02/14/23 Purpose of session/treatment goals addressed:: To address current stressors, triggers, and progress towards goals. Another goal was to discuss strategies to combat negative thinking patterns and unhelpful core beliefs. Eye Contact:: Poor Appearance:: Casual Speech:: Tangential and Soft Mood:: Anxious Affect:: Constricted Thoughts:: Linear and No evidence of hallucinations/delusions noted Staff Interventions:: thought challenging, CBT techniques, mindfulness skills and strengths perspective Client Response:: Pt responded well to session, open to meeting with this therapist as pt's normal IOP therapist is out of the office. Pt was on vacation last week with their partner and pt reported it was a great time. Pt shared they became tearful this morning because they were reflecting on the trip and felt gratitude towards their partner. Pt stated they noticed progress last night when pt was able to set a boundary with themselves and take a break rather than pushing through and making it my responsibility to fix. Pt shared in the past they would not have been able to practice that skills before, so they felt proud of themselves. Pt stated their biggest stressors right now are ongoing diff iculty with completing daily tasks and feeling like little has helped pt become more productive and on top of tasks. Pt reported they have tried prioritizing tasks before, breaking things down, and looking at tasks by how urgent they are. Pt receptive to feedback from therapist on organizing tasks by effort and urgency, rather than just urgency. Pt also feels that asking their partner to keep pt's to-do list and remind pt will be helpful and less overwhelming. Pt also gained awareness that their negative core beliefs of having to be perfect and that they are a burden contribute to pt's difficulty completing tasks. Pt shared that it is hard for pt to ask for help/delegate because of these beliefs which then makes pt's to-do list more challenging. Discussed what could help pt overcome these negative core beliefs and pt was encouraged o engage in some behavioral experiments. These include sitting with the uncomfortable of delegating a task and reminding themselves that they have different strengths than their partner. Pt also learned about self-compassion and was given resources for this. Risks/Concerns:: No risks noted. Pt denies any SI or thoughts of . Progress Toward Goals/Plan:: Pt reports progress in ability to catch negative thinking patterns and unrealistic expectations. Pt is working on using opposite action to prevent pt from engaging in behaviors that reinforce those unrealistic expectations. Pt reports less relationship stress which has improved pt's mental health. Pt does endorse ongoing difficulty with completing daily tasks, procrastination, difficulty concentrating, and lack of motivation at times. Pt is feeling more capable in their ability to function at work, but pt is anxious about leaving IOP tx and decompensating. Pt will continue IOP tx to promote mood stability, increase distress tolerance skills, and further increase daily functioning. Time Stopped:: 09:45
--- NOTE | 2023-02-15 10:05 | BH.SGPN.GN ---
Behaviors/Verbalizations/Mental Status: [Patient was alert and oriented, casually dressed and groomed. Eye contact was good, motor activity normal, speech within normal limits. Affect congruent, mood anxious. Thoughts linear, logical, no signs of hallucinations or delusions. ] Client Response/Progress/Benefit: [Patient was engaged and open to the discussion and appeared to respond well to the group. Patient used active listening and gave feedback during group discussion. Patient stated they feel they were viewing things more in a negative perspective for a long time because of their negative feelings. Patient said that feeling overwhelmed made them have to stop and think more into things. Patient appeared to benefit from increasing awareness of different perspectives and how they can affect mental health. Patient will continue IOP treatment to improve daily functioning, emotion management, and prevent decompensation.] Narrative Note: []
--- NOTE | 2023-02-15 11:15 | BH.SGPN.GN ---
Behaviors/Verbalizations/Mental Status: []Pt alert and oriented, neatly dressed and groomed. Eye contact good. Motor activity appropriate. Speech within normal limits. Affect congruent, mood anxious. Thoughts linear, logical, no signs of hallucinations or delusions. Client Response/Progress/Benefit: []Pt was attentive and contributed to small group discussion. Pt completed strengths exploration worksheet, identifying patience, love of learning, empathy, and ambition. Pt able to acknowledge how these strengths are helping pt and can continue to help pt in mental health journey. Pt worked with group to identify strategies that can help increase utilization of personal strengths and how to challenge one?s perspective in general. Pt identified wanting to work on reality testing with their partner to help challenge perspective. Benefited from identifying personal strengths and strategies for enhancing use of identified strengths. Pt will continue IOP tx to promote mood stability, increase self-compassion, and improve daily functioning. Narrative Note: []
--- NOTE | 2023-02-16 09:00 | BH.SGPN.GN ---
Behaviors/Verbalizations/Mental Status: [Patient was alert and oriented, appropriately dressed and groomed. Eye contact was good, motor activity normal, speech within normal limits. Affect congruent, mood content. Thoughts linear, logical, no signs of hallucinations or delusions. Reviewed Patients symptom tracker and the patient reports depressed mood, anxiety/panic attacks, aggravation/irritation/anger, self-harm urges, and risk/thoughts of suicide within patients normal base level.] Client Response/Progress/Benefit: [ Patient was engaged and open to the discussion. Patient reported their mood to be ?antsy and grumpy?. Patient stated the first win was that they made it every day to group this week. The second win was that they brought out their ?blue-light? lamp and has been using it. The patient described this lamp to be something that helps with seasonal depression because it mimics sunlight. The stressor the patient has is that they feel like they don?t have any time to do some of their responsibilities and is feeling overwhelmed. Patient was interactive and respectful with other group members about their mental wins and stressors. Patient benefited from the discussion by listening to feedback and giving input on their peer?s stressors and mental health wins. Patient will continue with IOP treatment to help develop healthy skills, promote mood stability, and improve distress tolerance. ] Narrative Note: []
--- NOTE | 2023-02-16 10:15 | BH.SGPN.GN ---
Behaviors/Verbalizations/Mental Status: []Pt alert and oriented, neatly dressed and groomed. Eye contact good. Motor activity appropriate. Speech within normal limits. Affect congruent, mood euthymic. Thoughts linear, logical, no signs of hallucinations or delusions. Client Response/Progress/Benefit: [] Pt was an active participant in activity and taking notes during group discussion. Attentive during psychoeducation on coping skills, why people use unhealthy coping skills, and how to replace unhealthy coping skills. Group came up with list of negative coping skills and pt identified several including substances, avoidance, and not setting boundaries. Group discussed the effects of how negative coping skills can impact mental health and reinforce negative thinking patterns. Participated in the group activity and made the connection that developing a strong base of healthy skills can help pt more effectively manage stressors. Benefited from increased understanding of unhealthy coping skills and the need for developing healthy internal and external coping skills. Pt will continue IOP tx to promote gains, reinforce healthy coping skills, and improve daily functioning. Narrative Note: []
--- NOTE | 2023-02-16 11:15 | BH.SGPN.GN ---
Behaviors/Verbalizations/Mental Status: []Pt alert and oriented, casually dressed and groomed. Eye contact good. Motor activity appropriate. Speech within normal limits. Affect congruent, mood stressed. Thoughts linear, logical, no signs of hallucinations or delusions Client Response/Progress/Benefit: [] Pt responded well to session, taking notes and contributing. Group discussed the different categories of coping skills which included distraction, emotional release, grounding, self-love, and thought challenging.? Pt participated in creating a coping skills ?menu? from the five categories of coping skills. Pt's coping skill menu included: ?productive procrastination,? allowing self to laugh, body scan, journaling their wins, and getting an unbiased opinion on stressors. Appeared to benefit from increasing repertoire of healthy coping skills. Will continue IOP tx to promote mood stability, further improve emotional regulation skills, and reduce negative thinking patterns. ? Narrative Note: []
--- NOTE | 2023-02-20 10:10 | BH.SGPN.GN ---
Behaviors/Verbalizations/Mental Status: []Pt alert and oriented, neatly dressed and groomed. Eye contact good. Motor activity appropriate. Speech within normal limits. Affect congruent, mood euthymic. Thoughts linear, logical, no signs of hallucinations or delusions. Client Response/Progress/Benefit: [] Pt was an active participant in group discussions. Attentive during psychoeducation. Contributed during interactive discussions in which peers attempted to define crisis. Pt identified examples of potential crisis. Group also worked together to identify unhealthy responses to crisis which included; isolation, self-harm, substance abuse, avoidance, and distraction. Pt identified personal warning signs as being on their phone excessively, being fidgety, and lack of motivation. Benefited from increased understanding of crisis and awareness of personal responses to crisis. Pt will continue IOP tx to promote mood stability, increase self-compassion, and improve daily functioning. Narrative Note: []
--- NOTE | 2023-02-20 11:10 | BH.SGPN.GN ---
Behaviors/Verbalizations/Mental Status: [] Eye contact is fair. Motor activity is fidgety. Appearance is casual. Speech is Appropriate. Mood is anxious. Affect is constricted. Thoughts are linear and logical. No evidence of psychosis. Client Response/Progress/Benefit: [] Pt was an active participant in group discussions. Attentive during psychoeducation. In small group pt along with peers developed an active plan for their crisis warning signs. Pt identified three crisis warning signs as well as an action plan for each. One crisis warning sign is using phone as distraction with an action plan that involved: Put phone in do not disturb mode, leaving phone another room, sitting screen times on phone, and using [employer] book instead of on phone tuyet. Other warning sign was fidgety/jumpy with an action plan that involved: Mindfulness, grounding tools, breathing, exercise, checking on basic needs like food, stress level, sleep, and social interactions. Benefited from increased awareness of crisis warning signs and by developing crisis intervention strategies. Will continue in IOP to increase utilization of healthy coping skills, challenge distortions, and prevent decompensation.
--- NOTE | 2023-02-20 15:00 | BH.MDN_ITS ---
Multi-Disciplinary Note Note 45-min Individual: Date: 02/20/23 Purpose of session/treatment goals addressed:: Purpose of session was to address goals 1 and 2 from [facility] [place]. Eye Contact:: Fair Motor Activity:: Restless Appearance:: Casual Speech:: Appropriate Mood:: Anxious and Dysthymic Affect:: Constricted Thoughts:: Linear, Logical and No evidence of hallucinations/delusions noted Staff Interventions:: thought challenging, CBT techniques, strengths perspective, goal setting, taught coping skills and other (problem solving) Client Response:: Client reported they had a really good vacation with their partner, Asif. Client stated they were both able to be in the moment and enjoy time together. Client stated she did have a moment of increased anxiety and sadness after finding out her secondary partner, Jake, was lying to her more than they had thought. Client reported they had several hours of trying to process this information, but is trying to move forward. Client stated they believe right now it would be best to postpone this relationship. Client reported they want to focus on balancing home and work life better. Client stated they were more productive last week at work while managing IOP, but crashed after the week. 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 Client worked with therapist to brainstorm various strategies/skills to help with work/life balance. Therapist shared some strategies for maintaining chores that have been helpful for individuals that are neurodivergent. Client reported they will move down to two days a week for IOP and go in to work 3 to 4 days a week. Client reported feeling ready to discharge from IOP next week. Client stated has noticed improvement with anxiety management, improved functioning, and improved distress tolerance. Client agreeable to complete provided maintenance plan. Risks/Concerns:: Denies suicidal ideation, plan, or intention. future oriented. Progress Toward Goals/Plan:: Progress noted with client reporting improved anxiety management, ability to bounce back from stressors, and feeling ready for discharge. 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 Client open to trying out several of the strategies identified in today's session. Plan is for client to discharge from IOP next week.
--- NOTE | 2023-02-22 09:05 | BH.SGPN.GN ---
Behaviors/Verbalizations/Mental Status: [Patient was alert and oriented, appropriately dressed and groomed. Eye contact was good, motor activity normal, speech within normal limits. Affect congruent, mood content. Thoughts linear, logical, no signs of hallucinations or delusions. Reviewed Patients symptom tracker and the patient reports depressed mood, anxiety/panic attacks, aggravation/irritation/anger, self-harm urges, and risk/thoughts of suicide within patients normal base level.] Client Response/Progress/Benefit: [Patient was engaged and open to the discussion. Patient reported their mood as ?panicky and fearful?. The patients stressor is that they think today may be their last day in group because of their insurance company. The patient does not feel like they are ready to leave the program and so unexpectedly. The first win is that the patient was able to identify some cognitive distortions the day prior when offered an opportunity that they declined. Before the client would think that they would not be able to do the task but in reality, they could. Instead, they now think they don?t deserve the opportunity. The patient identified this is still a negative way of thinking but believes it is better than not believing they could do it. The second win is that they have been journaling when getting anxiety and writing down their physical symptoms which has helped. Patient was interactive and respectful with other group members about their mental wins and stressors. Patient benefited from the discussion by listening to feedback and giving input on their peer?s stressors and mental health wins. Patient will continue with IOP treatment to help develop healthy skills, promote mood stability, and improve distress tolerance. ] Narrative Note: []
--- NOTE | 2023-02-22 10:10 | BH.SGPN.GN ---
Behaviors/Verbalizations/Mental Status: []Pt alert and oriented, casually dressed and groomed. Eye contact good. Motor activity appropriate. Speech within normal limits. Affect congruent, mood euthymic. Thoughts linear, logical, no signs of hallucinations or delusions. Client Response/Progress/Benefit: [] Pt engaged in session AEB listening attentively to others and providing insight to group discussion. Pt engaged in activity, able to connect how it can be uncomfortable and difficult to accept when things are out of one?s own control. Pt worked with group to identify what things in life can be hard to accept. Group identified things hard to accept as: of a loved one, body image, loss of relationship, mental health diagnosis, other?s behaviors, and past decisions. Pt shared they personally are struggling with not feeling responsible for other people, need to take medications, gender, and end of relationship. Pt seemed to benefit from increased awareness of importance of acceptance. Pt to continue IOP tx to prevent decompensation, continue use of heatlhy coping skills, and challenge distortions.
--- NOTE | 2023-02-22 11:10 | BH.SGPN.GN ---
Behaviors/Verbalizations/Mental Status: []Pt alert and oriented, neatly dressed and groomed. Eye contact good. Motor activity appropriate. Speech within normal limits. Affect congruent, mood euthymic. Thoughts linear, logical, no signs of hallucinations or delusions. Client Response/Progress/Benefit: [] Pt responded well to session AEB taking notes and contributing to discussion throughout. Pt engaged as group continued discussion on acceptance and the mental health benefits of practicing acceptance. Pt and peers identified what makes acceptance challenging and pt completed a self-reflection exercise on what is hard to accept in pt's life. Pt identified struggling to accept I?m not responsible for other people and that my mom is toxic.? Group identified strategies to increase acceptance and pt shared wanting to focus on being more willing instead of willful. Pt appeared to benefit from gaining insight and learning strategies to increase acceptance. Pt will continue IOP tx to promote gains, increase emotional regulation skills, and reduce negative thinking patterns. Narrative Note: []
--- NOTE | 2023-02-28 12:01 | PCM.BH.PN_ITS ---
Progress Note Progress Note: And history of Present Illness/Interim History: The patient is a 32-year-old biological female who identifies as a nonbinary person with a history of anxiety, depression and ADHD who is seen in follow-up at the [facility] behavioral health [facility]. Last saw the patient 1 month ago and at that ti me no medication changes were made. The patient states that she is doing pretty well overall and her mood and anxiety are much improved. She has been back at work full-time now and work is going okay. 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 According to the staff the patient has been engaged in the IOP and consistent in her attendance. She still gets some cyst distress from her core beliefs around needing to be perfect. She has not had any panic attacks in the past several weeks. She denies passive thoughts of , suicidal ideation, plan for suicide, homicidal ideation, hallucinations or delusions. Current Psychiatric Medications: [] Adderall immediate release 15 mg p.o. twice daily; Wellbutrin XL 450 mg p.o. every morning; Prozac 40 mg p.o. daily; BuSpar 7.5 mg p.o. twice daily; trazodone 50 mg 1 p.o. nightly; Xanax 0.25 mg p.o. as needed for panic attack but patient only took it twice in the past month. Mental Status Examination: [] The patient is a 32-year-old female who is tall and thin and appears normal for stated age and is casually dressed and groomed with good hygiene. She has short hair and several ear piercings. She has no psychomotor agitation or retardation. She is seen wearing a mask. Mood was anxious mildly and affect was mildly constricted. Eye contact was good and speech is normal rate and rhythm and fluent with no pressure. Thought process is goal-directed and organized. Thought content: The patient is worried because she is running out of her Adderall and is changing doctors at the same practice and they have not refilled it. There is no evidence of passive thoughts of , plan for suicide, thoughts of self-harm, suicidal ideation, homicidal ideation, hallucinations or delusions. Reality testing is intact. Intelligence is above average. Judgment is intact. Insight good. Impulsivity is low. Diagnoses: [] 1. Generalized anxiety disorder 2. PTSD 3. Major depressive disorder, recurrent, moderate 4. ADHD 5. Mild autism spectrum disorder (per patient) Plan: [] The patient will be continued in the IOP at [facility] as it has benefited her thus far. She felt safe during the interview and if it anytime she does not feel safe she will let us know or go to the emergency room. No medication changes were made today. Refills were given for her medications including her Adderall as the patient will run out before she gets in with the new doctor at the same psychiatric practice she was at before. She will continue to follow-up with her outpatient providers and I will see the patient in follow-up while she is in the IOP.
--- NOTE | 2023-03-02 10:10 | BH.SGPN.GN ---
Behaviors/Verbalizations/Mental Status: []Pt alert and oriented, casually dressed and groomed. Eye contact fair. Motor activity appropriate. Speech within normal limits. Affect congruent, mood anxious. Thoughts linear, logical, no signs of hallucinations or delusions. Client Response/Progress/Benefit: [] Pt receptive to session AEB contributing to small group discussion, as well as listening attentively to others, and taking notes. Worked with group to brainstorm the positive and negative aspects of stress on physical and mental health. Group did well to identify the benefits of stress as well as the impact of distress on performance, relationships, and mental health. Pt identified their personal top stressors as: relationships, work, and not feeling like there is enough time in the day. Pt seemed to benefit from increased awareness of current stressors and impact stress has on mental health. Recommended to continue IOP tx to improve emotion regulation, increase healthy coping, and prevent decompensation.
--- NOTE | 2023-03-02 10:15 | BH.SGPN.GN ---
Behaviors/Verbalizations/Mental Status: [ Patient was alert and oriented, casually dressed and groomed. Eye contact good, motor activity normal, speech within normal limits. Affect congruent, mood content. Thoughts linear, logical, no signs of hallucinations or delusions. ] Client Response/Progress/Benefit: [Patient was open and participated in group discussions. Attentive during psychoeducation on stress. Participated during the activity. Interactive group discussion on stress in which group verbalized their current stresses in their lives and if certain stressors were larger than others. Patient shared that sometimes their fight or flight response will kick in when stressed and that stress can be positive sometimes. Patient benefited from increased awareness of the effects of stress on their mental health. Will continue in IOP to promote gains, further combat distorted thinking, and improve daily functioning.] Narrative Note: []
--- NOTE | 2023-03-02 11:15 | BH.SGPN.GN ---
Behaviors/Verbalizations/Mental Status: []Pt alert and oriented, neatly dressed and groomed. Eye contact good. Motor activity appropriate. Speech within normal limits. Affect congruent, mood euthymic. Thoughts linear, logical, no signs of hallucinations or delusions. Client Response/Progress/Benefit: [] Pt was an active participant in group discussions and experiential activity. Was able to identify the connection between the experimental activity and utilization of stress management skills. Attentive during psychoeducation on the 4 A's (Avoid, adapt, alter, accept) of coping with stress as well as strategies to identify stressors in which one has no control, little control, or a great deal of control over. Pt shared plans to utilize the skill of altering and adapting to help with pt?s stressor of feeling like ?there?s never enough time in the day.? Benefited from increased awareness of stress management strategies. Will continue IOP tx to promote mood stability and further increase use of healthy coping skills. ? Narrative Note: []
--- NOTE | 2023-03-02 13:14 | BH.MDN ---
Multi-Disciplinary Note Note 45-min Individual: Time Started:: 08:55 Date: 03/02/23 Purpose of session/treatment goals addressed:: Purpose of session was to address goals 1 and 2 from [facility]. Eye Contact:: Fair Motor Activity:: Restless Appearance:: Casual Speech:: Appropriate Mood:: Anxious Affect:: Constricted Thoughts:: Linear, Logical and No evidence of hallucinations/delusions noted Staff Interventions:: thought challenging, CBT techniques, strengths perspective, goal setting and other (reinforced healthy coping skills) Client Response:: Client stated she was struggling on Sunday and Sunday after finding out some information about her boyfriend. Client reported they requested an emergency couples session and it helped them process what was going on. Client reported they have been feeling slightly better since the second couples session. Client stated they are unsure if their partner is willing to make some changes, but knows they both want to be life partners no matter what. Client reported they were doing really well with being productive at work, but had a setback with relationship stress. Client stated they are starting to get back to feeling better and knows they need to get back to using their skills. Client reported they are trying to accept the situation for what it is and focus on what's in their control. Client reported they did try technique of doing one small task a day and save the other tasks for Sunday, but that didn't work too well. Client stated they were able to clean parts of their bathroom. Client reported they recently have more motivation to get chores done. Client shared they are thinking of starting new strategy of getting some of the chores complete in the morning because that's when they have the most energy for chores. Client reported they will work on maintenance plan to review on their last day next week. Risks/Concerns:: Denies suicidal ideation, plan, or intention to date. future oriented. Progress Toward Goals/Plan:: Client noted slight decompensation after relationship issues, but is starting to feel better and bouncing back from the stressor. Client reports improved focus and productivity while at work. Client reports improved anxiety management and is able to recover from stressful situations quickly. Client is to continue IOP to maintain gains, continue use of healthy coping, and prevent decompensation. Plan is for client to discharge from IOP next week. Time Stopped:: 09:40
--- NOTE | 2023-03-07 09:05 | BH.SGPN.GN ---
Behaviors/Verbalizations/Mental Status: [] Eye contact is good. Motor activity is appropriate. Appearance is casual. Speech is Appropriate. Mood is anxious. Affect is congruent. Thoughts are linear and logical. No evidence of psychosis. Reviewed daily check in sheet and no reports of suicidal ideations or intent. Client Response/Progress/Benefit: [] Pt was an active participant in group discussions. Attentive. Daily symptom tracker notes 3/5 for anxiety and 2/5 for depression. Shared that today is her final day in [facility] and she is ?nervous and excited?. Talked briefly about her progress in the program as well as group topics which she felt were most beneficial (communication and conflict resolution). She reports discovering a new coping strategy which involved biofeedback through smart watch technology. Able to identify that certain self-care and distraction techniques helped lower her into the ?green? zone. This gives her validation that her skills are actually working. Current stressor is related to decision-making regarding her career. Progress noted per pt report. Benefited from group support, encouragement, and feedback. Will be discharged from [facility] today. Narrative Note: []
--- NOTE | 2023-03-07 10:15 | BH.SGPN.GN ---
Behaviors/Verbalizations/Mental Status: [Patient was alert and oriented, casually dressed and groomed. Eye contact was good, motor activity normal, speech within normal limits. Affect congruent, mood depressed. Thoughts linear, logical, no signs of hallucinations or delusions. ] Client Response/Progress/Benefit: [Patient was open and participated in group discussions. Attentive during psychoeducation Goal Setting. Participated during the activity. Interactive group discussion on Goal Setting in which group verbalized how to create the best and most effective goal using the SMART Goal model for their lives. Patient stated that a good thing about making goals is that you have a reminder of some success and can help when you think you?ve not made progress and keeps you motivated. Patient benefited from increased awareness of stages of changes and how emotions impact change. Will continue in IOP to promote gains, further combat distorted thinking, and improve daily functioning.] Narrative Note: []
--- NOTE | 2023-03-07 11:10 | BH.SGPN.GN ---
Behaviors/Verbalizations/Mental Status: []Pt alert and oriented, casually dressed, appropriately groomed. Eye contact fair. Motor activity appropriate. Speech within normal limits. Affect congruent, mood euthymic. Thoughts linear, logical, no signs of hallucinations or delusions. Client Response/Progress/Benefit: [] Pt was engaged during discussion and willing to complete the worksheet challenging them to develop a personal SMART goal. Pt chose the goal of getting out of bed by 7am each weekday for two weeks. Pt stated this goal will benefit them by giving them more time in the evening to get things done. Pt identified barriers which included I don't want to in the morning, snoozing alarm, and being cold outside. Identified solutions such as put something motivating at his bedside to remind them why the goal is important, ask partner to keep them accountable, and set house shoes and little blanket by their bedside. Pt receptive to identifying solutions for these barriers and willing to begin working on this goal. Benefited from this group by developing a short-term SMART goal related to mental health. Pt has shown treatment progress and will discharge from [facility] today.
--- NOTE | 2023-03-07 15:35 | BH.DS ---
Discharge Summary Demographics Date of Admission:: 01/09/23 Discharge Date: 03/07/23 Presenting Problems at Admission:: The patient is a 32-year-old biological female who identifies as a nonbinary person who was referred to the [facility] behavioral health IOP for worsening anxiety and sadness. . 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 Their mood has also been somewhat depressed and at one point they was having trouble with personal hygiene, doing basic tasks and errands and chores. They have been on a leave of absence from work for the past 2 weeks and their anxiety has improved since then. Patient endorses sadness, worthlessness, hopelessness, guilt and mild anhedonia. Discharge Diagnoses:: 1. Generalized anxiety disorder F41.1 2. PTSD 3. Major depressive disorder, recurrent, moderate 4. ADHD (diagnosed 1 year ago) 5. Mild autism spectrum disorder (diagnosed by patient's brother who is a medical officer psychiatry) Reason for Discharge:: Pt reports significant treatment progress since starting IOP and no longer meets criteria for [facility] level of care. Treatment Progress During Treatment & Response: Progress noted with pt improving improve daily functioning at home and work. Pt stated they are managing their emotions more effectively and has been able to return back to work on a part-times basis the last couple of weeks. Pt stated feeling more mentally stable. DSM 5 scores at discharge Discharge Handout
== END 2023-03-09 06:56 | disposition home or self-care (01) ==
LOC: BHIOP 06:48
PROVIDERS: Referring Provider Psychiatry & Neurology Psychiatry; Visit Provider Psychiatry & Neurology Psychiatry
DX: F41.1 Generalized anxiety disorder (principal); F43.10 Post-traumatic stress disorder, unspecified; F33.1 Major depressive disorder, recurrent, moderate; F84.0 Autistic disorder
CPT/HCPCS: S9480; 90832; 90834; 90837; 90853